=== PATIENT | female | born 1990 | race Two or more races ===

== ENCOUNTER 2023-11-19 20:00 | Emergency (ER) | payer BC, OTHER ==
[~2023-11-19] VITALS: Ht 165.1 cm; Wt 83.3 kg
[2023-11-19 20:52] VITALS: BP 136/78; PULSE 106; RESP 16; O2SAT 97
[2023-11-19 21:04] LABS: Urine Bacteria None Seen /hpf (None Seen)
[2023-11-19 21:49] LABS: Urine Blood 1+ /uL (Negative); Urine Clarity Clear (Clear); Urine Color Yellow (Yellow); Urine Mucus FEW (None Seen); Urine Protein, UAD 1+ (Negative); Urine Specific Gravity 1.035 (1.001-1.035); Urine Urobilinogen Normal (Negative); Urine WBC 1 /hpf (0 - 5); Urine pH 5.5 (5.0-9.0)
[2023-11-19] MEDS ORDERED: SODIUM CHLORIDE 0.9% 1,000 ML IV ONE ×2 (22:45→23:15)
[2023-11-19] MEDS ORDERED: ONDANSETRON HCL 4 MG/2 ML VIAL IV ONE (22:45)
== END 2023-11-20 01:05 | disposition left against medical advice (07) ==
LOC: ER 20:00
DX: K52.9 Noninfective gastroenteritis and colitis, unspecified (principal); E86.0 Dehydration; Z98.890 Other specified postprocedural states
CPT/HCPCS: 81001